=== PATIENT | female | born 1955 | race Caucasian/White ===

== ENCOUNTER → 2018-02-09 | Outpatient (CLI) | payer BC ==
--- NOTE | 2018-02-10 08:00 | MM ---
Reason for exam: screening (asymptomatic). Last mammogram was performed 2 years and 2 months ago. History: Patient is postmenopausal and history of other cancer. Family history of breast cancer in aunt. Physical Findings: A clinical breast exam by your physician is recommended on an annual basis and results should be correlated with mammographic findings. MG Screening Mammo w CAD Bilateral CC and MLO view(s) were taken. Prior study comparison: December 19, 2015, bilateral MG screening mammo w CAD. June 25, 2014, bilateral MG screening mammo w CAD. There are scattered fibroglandular densities. Benign calcifications bilaterally. No suspicious abnormality. No significant changes when compared with prior studies. ASSESSMENT: Benign, BI-RAD 2 RECOMMENDATION: Routine screening mammogram of both breasts in 1 year.
== END | disposition home or self-care (01) ==
LOC: RADMAMWWP 10:59
PROVIDERS: ATTEND Obstetrics & Gynecology
DX: Z12.31 Encounter for screening mammogram for malignant neoplasm of breast (principal)
CPT/HCPCS: 77067

== ENCOUNTER → 2020-06-11 | Outpatient (CLI) | payer BC ==
--- NOTE | 2020-06-12 14:50 | MM ---
Reason for exam: screening (asymptomatic). Last mammogram was performed 2 years and 4 months ago. History: Patient is postmenopausal and has history of other cancer at age 60. Family history of breast cancer in aunt. Physical Findings: A clinical breast exam by your physician is recommended on an annual basis and results should be correlated with mammographic findings. MG Screening Mammo w CAD Bilateral CC and MLO view(s) were taken. Prior study comparison: February 09, 2018, bilateral MG screening mammo w CAD. December 19, 2015, bilateral MG screening mammo w CAD. The breast tissue is heterogeneously dense. This may lower the sensitivity of mammography. Stable benign calcifications. There is no discrete abnormality. No significant changes when compared with prior studies. ASSESSMENT: Benign, BI-RAD 2 RECOMMENDATION: Routine screening mammogram of both breasts in 1 year.
== END | disposition home or self-care (01) ==
LOC: RADMAMWWP 16:42
PROVIDERS: ATTEND Obstetrics & Gynecology
DX: Z12.31 Encounter for screening mammogram for malignant neoplasm of breast (principal); Z78.0 Asymptomatic menopausal state; Z80.3 Family history of malignant neoplasm of breast; Z85.828 Personal history of other malignant neoplasm of skin
CPT/HCPCS: 77067